=== PATIENT | female | born 1945 | race Caucasian/White ===

== ENCOUNTER 2017-02-20 08:33 | Day surgery (SDC) | payer MEDICARE, OTHER ==
[2017-02-15 12:40] LABS: BASOPHILS 0.1 %; BASOPHILS ABSOLUTE 0.01 10/3/uL (0.0-0.16); EOSINOPHILS 2.7 %; EOSINOPHILS ABSOLUTE 0.19 10/3/uL (0.0-0.53); HEMATOCRIT 42.6 % (36.0-48.0); HEMOGLOBIN 14.7 g/dL (12.0-16.0); IMMATURE GRANULOCYTES 0.1 %; IMMATURE GRANULOCYTES ABSOLUTE 0.01 10/3/uL (0.0-0.11); LYMPHOCYTES 20.1 %; LYMPHOCYTES ABSOLUTE 1.39 10/3/uL (0.67-4.30); MEAN CORPUS HGB CONC 34.5 g/dL (32.0-36.0); MEAN CORPUSCULAR HEMOGLOB 31.7 pg (26.0-34.0); MEAN CORPUSCULAR VOLUME 91.8 fL (80-100); MEAN PLATELET VOLUME 10.9 fL (9.2-13.0); MONOCYTES 9.7 %; MONOCYTES ABSOLUTE 0.67 10/3/uL (0.21-1.20); NEUTROPHILS 67.3 %; NEUTROPHILS ABSOLUTE 4.65 10/3/uL (2.02-8.40); PLATELET COUNT 202 10/3/uL (150-400); RBC DISTRIBUTION WIDTH 13.2 % (12.0-16.0); RED CELL COUNT 4.64 10/6/uL (4.0-5.6); WHITE BLOOD CELLS 6.9 10/3/uL (4.5-10.5)
[2017-02-15 12:41] LABS: MANUAL DIFF NO %
[2017-02-15 13:42] LABS: A/G RATIO 1.1 (0.7-1.9); ALBUMIN 3.7 G/DL (3.5-5.0); ALKALINE PHOSPHATASE 76 U/L (45-117); BUN (BLOOD UREA NITROGEN) 10 MG/DL (6-23); CALCIUM, SERUM 9.3 MG/DL (8.5-10.4); CHLORIDE, SERUM 100 MMOL/L (96-112); CO2 (CARBON DIOXIDE) 32 MMOL/L (24-34); CREATININE 0.81 MG/DL (0.55-1.02); GFR AFRICAN AMERICAN 85 ML/MIN (>=60); GFR NON AFRICAN AMERICAN 73 ML/MIN (>=60); GLOBULIN 3.5 G/DL (2.5-4.1); GLUCOSE, SERUM 89 MG/DL (60-99); SGOT(AST) 22 U/L (5-40); SGPT(ALT) 24 U/L (5-65); SODIUM, SERUM 138 MMOL/L (135-148); TOTAL BILIRUBIN 0.6 MG/DL (0-1.2); TOTAL PROTEIN 7.2 G/DL (6.0-8.5)
--- NOTE | ~2017-02-20 | OP ---
Record Of Operation [facility] [address] [place]. 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 POSTOPERATIVE DIAGNOSIS: Recurrent malignant melanoma of distal right foot. PROCEDURE: Wide local resection of malignant melanoma of distal right foot. SURGEON: Dominique Montoya M.D. ANESTHESIA: General with intubation. COMPLICATIONS: None. ESTIMATED BLOOD LOSS: Less than 5 mL. SPECIMENS: Melanoma from right foot. DRAINS: None. LAP AND SPONGE COUNT: Correct x3. BRIEF HISTORY: This 71-year-old female has a previous history of malignant melanoma of the right great toe. She is status post amputation of the right great toe at the metatarsophalangeal joint several years ago, which also involved right inguinal lymph node dissection. She developed evidence for recurrence of the melanoma at the surgical incision in the distal aspect of the right foot at the amputation site. This had been biopsied and found to be a malignant melanoma. It is now felt that wide excision of this area was indicated. The patient had no evidence for metastatic disease. This procedure, the risks, benefits, alternatives, including but not limited to the risk for bleeding, infection, pain, swelling, scarring, deformity to the area, seroma formation, hematoma formation, wound failure, wound dehiscence, possible need for further surgery, including a partial amputation of the bone of the foot and unforeseen complications including deep venous thrombosis, pulmonary embolus, myocardial infarction, stroke, pneumonia, and , were fully explained to the patient prior to surgery. The skin in this area was very tight over the 1st metatarsal head and the fact that she would be at increased risk for wound failure, wound dehiscence, requiring prolonged wound care for this reason, was explained. The patient had questions, which were answered. She fully understood the risks and agreed to surgery as planned. PROCEDURE IN DETAIL: After being properly identified and after discussing risks of surgery with the patient and family again in the preoperative area and after identifying the lesion of concern with her in the preoperative area, the patient was taken to the operating room and placed in the supine position on the operating room table. General anesthesia was administered. She was intubated without difficulty. The right leg and left thigh were Record Of Operation [facility] [address] [place]. [address] NAME: WILLIAM RÍOS : 45 STATUS : [facility]#: [id number] AGE: 72 ADM/REG DATE : 02/20/17 MR#: [id number] REPORT SERV DATE: 02/22/17 DICTATED BY: DOMINIQUE MONTOYA III DATE: 02/22/17 REPORT STATUS : Draft TRANSCRIBED BY: MATEUSZ DATE: 02/22/17 prepped and draped sterilely in the usual fashion. It had been explained the patient prior to surgery that the split-thickness skin graft might be required for closure of the wound. After an appropriate time-out" per [employer] standards, a wide elliptical-shaped incision was made around the previous biopsy site. The incision was made so as to have at least a 1-2 cm margin around the previous biopsy site. The incision was continued down to the 1st metatarsal bone. The entire block of tissue was resected and oriented with sutures and sent for permanent pathology. Using sharp dissection, the skin in the subcutaneous tissue around this area was mobilized to allow for closure. Hemostasis was assured. The subcutaneous tissue was then closed interrupted 3-0 Vicryl sutures. The skin was closed with interrupted 3-0 Prolene sutures. They came together nicely with no undue tension. Hemostasis was assured. The incision was injected with 0.5% Marcaine. Dressings were applied. Anesthesia was reversed. The patient was taken to the recovery room in stable condition. She tolerated the procedure well. Her family was informed results of surgery. The patient was discharged when stable and comfortable. Her family was advised that she should be as nonambulatory as possible. She was provided with an orthopedic shoe, which she was advised to wear it to protect her foot and was advised to use crutches or wheelchair possible. She was asked to return in two weeks for followup, sooner if any fever, chills, wound drainage, or other problems prior that time. She was advised to resume her usual medications and was given a prescription for Percocet 7.5 one t.i.d., #12, as needed for pain, which she was advised not to use while driving. She was advised to continue use of lymphedema stockings. AVERY/MATEUSZ Dominique Montoya III, M.D. / [id number] CC: Ortiz Mays III, M.D.
--- NOTE | ~2017-02-20 | PREOPHP ---
PreOp History and Physical [facility] [place]. [address] NAME: WILLIAM RÍOS : 45 STATUS : [facility] PAT#: [id number] AGE: 71 ADM/REG DATE : MR#: [id number] REPORT SERV DATE: 02/20/17 DICTATED BY: DOMINIQUE JACKSON III DATE: 02/07/17 REPORT STATUS : Draft TRANSCRIBED BY: MODL DATE: 02/07/17 HISTORY OF PRESENT ILLNESS: This 71-year-old female comes to the operating room for wide local resection of recurrent malignant melanoma of the right foot. The patient is status post right great toe amputation performed for malignant melanoma in 2013. At that time, she had a positive sentinel lymph node in the right groin. She underwent right inguinal superficial and deep lymph node dissection on 04/15/2014, following right great toe amputation on 03/20/2014. Recently, the patient noted a small "blister" like lesion in the medial aspect of the previous amputation site on the distal aspect of the right foot. She describes a subcutaneous nodule. She was seen by a [employer] assistant and underwent excision of this and was found to be malignant melanoma. She comes now for wide local resection of this area of recurrence or persistence. PET scan is pending at this time. PAST MEDICAL HISTORY: 1. History of malignant melanoma, Prosper level IV, 3.3 mm in thickness, of the right great toe, status post right great toe amputation, sentinel lymph node biopsy followed by superficial inguinal right groin dissection in February and March of 2014. 2. Chronic lymphedema of the right lower extremity. 3. Obesity. 4. Hypertension. ALLERGIES: CODEINE. MEDICATIONS: Terazosin; losartan and hydrochlorothiazide; clonidine; Estratest; pantoprazole; and vitamins. SOCIAL HISTORY: No history of tobacco or alcohol use. REVIEW OF SYSTEMS: The patient's 14-point review of systems is otherwise unremarkable. PHYSICAL EXAMINATION: OBJECTIVE PHYSICAL EXAM: GENERAL: Reveals a very obese female, in no acute distress. She is alert and oriented x3. VITAL SIGNS: Blood pressure 143/82, pulse 67, and temperature 97.2. HEENT: Unremarkable. NECK: Unremarkable. No adenopathy. CRANIAL NERVES: Cranial nerves 2 through 12 are normal. LUNGS: Clear. CARDIAC: Normal. EXTREMITIES: Over the right lower extremity is a well-healed amputation site at the site of the previous right great toe. At the medial aspect of the incision is a biopsy site which is healing well. Both left and right groins are normal with no adenopathy. The patient has chronic lymphedema of the right lower extremity. PreOp History and Physical [address] [place]. [address] NAME: WILLIAM RÍOS : 45 STATUS : [facility]#: [id number] AGE: 71 ADM/REG DATE : MR#: [id number] REPORT SERV DATE: 02/20/17 DICTATED BY: DOMINIQUE JACKSON III DATE: 02/07/17 REPORT STATUS : Draft TRANSCRIBED BY: MATEUSZ DATE: 02/07/17 ASSESSMENT: 1. A 71-year-old female with recurrent or persistent malignant melanoma of the right lower extremity, at the previous amputation site of the right great toe, representing either local recurrence or a satellite lesion. 2. History of previous right great toe malignant melanoma, 3.3 mm in thickness, Prosper level IV, status post right great toe amputation, 03/20/2014, followed by right inguinal and superficial lymph node dissection on 04/15/2014. 3. Obesity. PLAN: The patient comes now for wide local resection of the area of the biopsy on the right foot. The possible need for skin grafting has been explained. The procedure risks, benefits, and alternatives, including not limited to the risk for bleeding, infection, pain, swelling, scarring, deformity to the area, seroma formation, hematoma formation, wound failure, wound dehiscence requiring further surgery, possible need for further surgery, including a partial amputation of the foot depending on final pathology report, and unforeseen complications including deep venous thrombosis, pulmonary embolus, myocardial infarction, stroke, pneumonia, and , have been explained to the patient and family at length. The expected length of recovery has been explained. The patient's questions have been answered. She clearly understands the risks and agreed to the surgery as planned. AVERY/MATEUSZ Dominique Jackson III, M.D. / [id number]
[~2017-02-20 08:33] MED LIST: ADVIL PO; ALLEGRA-D24 HOUR PO; ASAB PO; ASTELIN NAS; AT10 PO; AT25 PO; BENEFIBER PO; CALTRA600D PO; CAT1 PO; CIP5 PO; CITRACAL PO; COZ50 PO; ESTRATESHS PO; ESTRATEST PO; FLEX PO; FOLIC PO; GLUCCHONDR PO; HCTZ25B PO; HYDROCHLOROT25 MG PO; HYTRIN10 MG PO; IBU-200200 MG PO; LOTRIMIN AF12 EX; LOTRIMIN-MYCELE15 GM T; MULTIPLE VIT PO; MULTIVIT/MIN PO; NASONEX NAS; NTGOINTUD TOP; OCEAN NAS; OS500+D PO; PRILOSEC OTC20 MG PO; PROBIOTIC PO; PROTONIX PO; SUDAFED PO; SURBEX/ZINC1 TAB PO; TYLENOL ARTH650 MG PO; ULTRAM50 PO; VICODINTAB PO; VITAMIN C PO; VITAMIN D1000 UNI1 PO; VITAMIN D31000 UNIT PO; VITC500 PO; VITE1000 PO; VOLTAREN1 % TOP
== END 2017-02-20 15:21 | disposition home or self-care (01) ==
LOC: SDC 08:33
PROVIDERS: Surgery
PROC: 0JBQ0ZZ Excision of Right Foot Subcutaneous Tissue and Fascia, Open Approach (ICD-10-PCS; principal; 2017-02-20 10:15)
DX: C43.71 Malignant melanoma of right lower limb, including hip (principal); E66.01 Morbid (severe) obesity due to excess calories; I10 Essential (primary) hypertension; K21.9 Gastro-esophageal reflux disease without esophagitis; I25.10 Atherosclerotic heart disease of native coronary artery without angina pectoris; I73.00 Raynaud's syndrome without gangrene; I71.4 Abdominal aortic aneurysm, without rupture; Z79.899 Other long term (current) drug therapy; Z91.040 Latex allergy status; Z91.048 Other nonmedicinal substance allergy status; Z79.891 Long term (current) use of opiate analgesic; Z91.011 Allergy to milk products
CPT/HCPCS: 71020; 80053; 83615; 85025; 88305; 93005; A9270-GY; J0690; J2250; J2270; J2370; J2405; J3010